=== PATIENT | female | born 1965 | race Caucasian/White ===

== ENCOUNTER 2018-10-20 07:22 | Emergency (ER) | payer BC ==
[~2018-10-20] VITALS: Ht 175.3 cm; Wt 84.1 kg
[~2018-10-20 07:22] MED LIST: ALLEGRA 180MG180 MG PO; ESTRACE 1MG1 MG/TAB; MOTRIN 800800 MG/TAB PO; PERCOCET 325 MG1 TA2 PO; SYNTHROID0.112 MG/T PO
[2018-10-20 07:34] VITALS: TEMP 97.8
[2018-10-20] MEDS ORDERED: PREDNISONE20 MG PO (08:13)
[2018-10-20 09:10] VITALS: BP 120/64; PULSE 82
[2018-10-20] MEDS ORDERED: DIFLUCAN200 MG PO (09:11)
== END 2018-10-20 09:24 | disposition home or self-care (01) ==
LOC: COL.ER 07:22
DX: J11.1 Influenza due to unidentified influenza virus with other respiratory manifestations (principal); L25.9 Unspecified contact dermatitis, unspecified cause; R21 Rash and other nonspecific skin eruption; E03.9 Hypothyroidism, unspecified; Z90.710 Acquired absence of both cervix and uterus; Z98.890 Other specified postprocedural states; Z88.0 Allergy status to penicillin
CPT/HCPCS: J1200; J2930; J7030

== ENCOUNTER → 2019-01-18 | Outpatient (CLI) | payer OTHER, BC ==
[~2019-01-18] MED LIST changes: +DIFLUCAN200 MG PO; +PREDNISONE20 MG PO
== END ==
LOC: COL.RAD 14:10
DX: M47.812 Spondylosis without myelopathy or radiculopathy, cervical region (principal); M48.02 Spinal stenosis, cervical region; V89.2XXD Person injured in unspecified motor-vehicle accident, traffic, subsequent encounter

== ENCOUNTER 2020-04-06 11:32 | Emergency (ER) | payer BC ==
[~2020-04-06] VITALS: Ht 172.7 cm; Wt 96.8 kg
[2020-04-06 12:00] VITALS: TEMP 97.9
[2020-04-06 14:10] VITALS: BP 120/76; PULSE 80
== END 2020-04-06 14:10 | disposition home or self-care (01) ==
LOC: COL.ER 11:32
DX: G43.909 Migraine, unspecified, not intractable, without status migrainosus (principal); G89.29 Other chronic pain; Z79.899 Other long term (current) drug therapy
CPT/HCPCS: J1100; J1200; J1885; J2765; J7030

== ENCOUNTER → 2020-05-05 | Outpatient (CLI) | payer BC | LOC: MC.RAD 13:42 | DX: Z12.31 Encounter for screening mammogram for malignant neoplasm of breast (principal) ==

== ENCOUNTER 2021-08-06 15:40 | Inpatient (IN) | payer BC ==
[~2021-08-06] VITALS: Ht 175.3 cm; Wt 94.0 kg
[2021-08-06 16:45] LABS: BASO % 0.2 % (0.0-2.0); GRAN # 3.1 K/mm3 (1.4-6.5); GRAN % 73.6 % (42.2-75.2); HEMATOCRIT 46.2 % (37.0-47.0); HEMOGLOBIN 15.6 g/dl (12.5-16.0); LYMPH # 0.7 K/mm3 (1.2-3.4); LYMPH % 17.1 % (20.0-51.0); MEAN CELL VOLUME 88 fl (80.0-100.0); MEAN CORPUSCULAR HEMOGLOBIN 30 pg (27.0-31.0); MEAN CORPUSCULAR HGB CONC 34 g/dl (33.0-37.0); MEAN PLATELET VOLUME 9.8 fl (7.4-10.4); MONO # 0.4 K/mm3 (0.1-0.6); MONO % 8.9 % (1.7-9.3); PLATELET COUNT 230 K/mm3 (130-400); RED BLOOD COUNT 5.24 M/mm3 (4.10-5.30); REDCELL DISTRIBUTION WIDTH-CV 12.2 % (11.5-14.5)
[2021-08-06 17:01] LABS: ALBUMIN 3.1 gm/dL (3.5-5.0); BILIRUBIN,TOTAL 0.6 mg/dL (0.2-1.2); CALCIUM 9.5 mg/dL (8.4-10.2); CREATININE, serum 0.73 mg/dL (0.57-1.11); POTASSIUM 4.1 mmol/L (3.5-4.5); TOTAL PROTEIN 7.4 gm/dL (6.2-8.1)
--- NOTE | 2021-08-06 22:24 | NUR ---
Patient came to the unit alert and oriented x 4, O2 levels upper 80s lower 90s. Complains of headache. Right now at room air. PT independent, able to transfer herself.
[2021-08-06] MEDS ORDERED: OTEZLA PO (22:38)
--- NOTE | 2021-08-06 22:51 | NUR ---
Patient reports she was diagnosed with COVID 19 08/02/21
[2021-08-07] VITALS (8 sets, daily range): BP systolic 109–129; BP diastolic 46–70; PULSE 64–99; TEMP 97.6–98.8
--- NOTE | 2021-08-07 07:01 | NUR ---
Patient has been stable along the night. No fever. Continues at RA. Shift report given to day RN.
[2021-08-07 07:12] LABS: COLLECTION METHOD CLEAN CATCH
[2021-08-07 07:16] LABS: HEMATOCRIT 43.6 % (37.0-47.0); MEAN CELL VOLUME 88 fl (80.0-100.0); MEAN CORPUSCULAR HEMOGLOBIN 30 pg (27.0-31.0); MEAN CORPUSCULAR HGB CONC 34 g/dl (33.0-37.0); MEAN PLATELET VOLUME 10.3 fl (7.4-10.4); PLATELET COUNT 232 K/mm3 (130-400); RED BLOOD COUNT 4.97 M/mm3 (4.10-5.30); REDCELL DISTRIBUTION WIDTH-CV 12.1 % (11.5-14.5)
[2021-08-07 07:27] LABS: MUCOUS Present /lpf; PH 5 (5-8); SQUAMOUS EPITHELIAL 0-2 /hpf; URINE APPEARANCE Clear; URINE BACTERIA None Seen /hpf; URINE BILIRUBIN Negative (NEGATIVE); URINE BLOOD Negative (NEGATIVE); URINE COLOR Yellow; URINE GLUCOSE Negative (NEGATIVE); URINE KETONE Negative (NEGATIVE); URINE LEUKOCYTE ESTERASE Negative (NEGATIVE); URINE NITRATE Negative (NEGATIVE); URINE PROTEIN(semi-quant) Negative (NEGATIVE); URINE RBC 0-2 /hpf; URINE UROBILINOGEN Negative (NEGATIVE)
[2021-08-07 07:42] LABS: CALCIUM 9.3 mg/dL (8.4-10.2); CREATININE, serum 0.69 mg/dL (0.57-1.11); POTASSIUM 3.9 mmol/L (3.5-4.5)
[2021-08-07 08:18] LABS: BAND 9 % (0-10); BASOPHIL 1 % (0-2); LYMPHOCYTE 27 % (20.0-51.0); NEUTROPHILS 50 % (42.0-75.2); PLATELET ESTIMATE NORMAL (NORMAL)
--- NOTE | 2021-08-07 08:59 | NUR ---
PT HAD EXTREME COUGHING EPISODE AFTER EACH PUFF OF ALBUTEROL. RN IN ROOM
--- NOTE | 2021-08-07 09:21 | NUR ---
Scheduled medications given. Shift assessment preformed. Patient experiencing SOA and cough upon exertions. Cough also present at rest, small amount of sputum as a result. PRN cough medicine given. Patient currently on RA. Patient denies any pain, discomfort, N/V/V, or further needs at this time. Call light in reach. VSS. Patient A&O. Currently refusing Remdesivir.
--- NOTE | 2021-08-07 09:21 | NUR ---
The patient is COVID positive. SW contacted the patient to discuss discharge plan. The patient lives in [place] with her , Breanna (ph#[phone]), and children. She reports independence with ADLs and does not have any DME. The patient's PCP is Dr. Gabriel Roldan and she receives her medications from [facility]. She reports no difficulties obtaining her meds. The patient does not have a DPOA-HC, but she was interested in obtaining a form when she discharges. ALEJANDRA placed a form on the patient's chart. The patient plans to return home with her family upon discharge. No additional needs at this time. *Discharge plan: home with family*
--- NOTE | 2021-08-07 17:47 | NUR ---
Patient has had a rough day. Patient given information regarding the use of remdesivir. Dr. Delarosa discussed medication with patient. All questions answered. Patient agreed to take medication. Not long after medication was given, patient started to C/O a severe headache. Did not rate it on pain scale, stated, "It just hurts." PRN motrin and icepack given. Patient stated "This has helped a little." Pain began to increase shortly after. [place] contacted. Orders for medication placed. Patient is currenlty not requiring any O2. Getting robitussin Q4. Patient denies any further needs at this time. VSS. Patient A&O. Call light in reach.
--- NOTE | 2021-08-07 20:12 | NUR ---
Patient sat 84% on room air, O2@ 3L per NC to increase sat to 92%, notified MD carton counter feeder, RT.
[2021-08-08] VITALS (7 sets, daily range): BP systolic 109–133; BP diastolic 39–68; PULSE 77–102; TEMP 98.7–102.8
--- NOTE | 2021-08-08 04:00 | NUR ---
Notified Bette Palma of elevated temp 102.8, PRN tylenol given, no new orders at this time.
--- NOTE | 2021-08-08 08:11 | NUR ---
Shift assessment completed. Scheduled medications given. Patient currently requiring 3L of O2 via nasal cannula. Dyspnea and cough noted upon exertion. Patient C/O headache. Does not rate, states "It just hurts." PRN medication and ice pack given. Patient also C/O body aches. Patient denies any N/V/D. Temp currently 99.4. Patient denies any further needs at this time. Call light in reach. Patient A&O.
--- NOTE | 2021-08-08 18:26 | NUR ---
Patient has had an ok day. Currently requiring 3L of O2 via nasal cannula. Has not c/o headache this afternoon. Patient refused Remdesivir stating that it made her feel terrible yesterday and she does not want to experience it again. Current temp 99.8. Patient offered shower and wishes to take on at a later time. Patient denies any pain, discomfort, or further needs at this time. Call light in reach. VSS. Patient A&O.
[2021-08-09 04:34] VITALS: BP 124/53; PULSE 81; TEMP 99.4
[2021-08-09 08:43] VITALS: BP 117/50; PULSE 80; TEMP 98.1
--- NOTE | 2021-08-09 08:45 | NUR ---
ENTERED PT ROOM, PT HAVING LABORED BREATHING, REPORTS JUST GETTING BACK FROM RESTROOM. VITALS TAKEN, O2 82% ON 6L, TITRATED TO 8L FOR ABOUT 5MIN AND PT STILL SATTING 82%. THEN TITRATED TO 10L, O2 INC TO 83%. PT NOT INCREASING O2 BOSE, INC COUGHING, TITRATED TO 15L, RT NOTIFIED STILL MAINTAINING 82% ON 15L
--- NOTE | 2021-08-09 09:21 | NUR ---
PT SPO2 88% ON 15 LPM HFNC. PLACED ON AIRVO 50L FIO2 75% SPO2 93 % . RN NOTIFIED
--- NOTE | 2021-08-09 10:01 | NUR ---
DR. MORENO NOTIFIED OF PT INCREASED OXYGEN DEMANDS, NO NEW ORDERS
--- NOTE | 2021-08-09 10:32 | NUR ---
PT 98% ON AIRVO, RESTING COMFORTABLY
[2021-08-09 13:15] VITALS: BP 105/56; PULSE 81; TEMP 98
[2021-08-09 15:37] VITALS: BP 118/50; PULSE 80; TEMP 98.3
--- NOTE | 2021-08-09 16:31 | NUR ---
RFA IV INFILTRATED, LFA 20G STARTED, ANX AND REMDESIVIR HUNG, NO OTHER NEEDS
--- NOTE | 2021-08-09 17:30 | NUR ---
PT PLEASANT, REQUESTED APPLE SAUCE, REMDESIVIR DETTACHED, APPLE SAUCE BROUGHT IN, COUGH SYRUP GIVEN PER PT REQUEST, PT AOX4, INDEPENDENT IN ROOM, ON AIRVO, REPORTS DIARRHEA, NO N/V. NO OTHER NEEDS AT THIS TIME
[2021-08-09 19:56] VITALS: BP 128/52; PULSE 88; TEMP 98
[2021-08-10 00:01] VITALS: BP 130/57; PULSE 94; TEMP 98
[2021-08-10 04:06] VITALS: BP 130/57; PULSE 96; TEMP 97.7
--- NOTE | 2021-08-10 04:57 | NUR ---
Rested quielty throughout release of information clerk, VS stable, tolerating covid medication regimen w/o issue, ambulates w/o difficulty.
[2021-08-10 09:06] VITALS: BP 109/49; PULSE 77; TEMP 97.4
--- NOTE | 2021-08-10 10:00 | NUR ---
Patient laying in bed upon entering the room. Requested a hot wash cloth to wash her face, patient took her airvo off. Patient has been educated that airvo needs to stay on at all times.
--- NOTE | 2021-08-10 10:39 | NUR ---
The patient is now requiring 60 liters of oxygen via high flow cannula. SW to continue to monitor.
[2021-08-10 12:13] VITALS: BP 116/42; PULSE 76; TEMP 98.3
[2021-08-10 17:04] VITALS: BP 111/51; PULSE 87; TEMP 98.1
--- NOTE | 2021-08-10 17:48 | NUR ---
Patient has done okay today since being on the max amount of Airvo. Promethazine was administered prior to the administration of remdesivir and patient seems to be tolerating all medications well.
[2021-08-10 20:40] VITALS: BP 109/56; PULSE 74; TEMP 98.1
[2021-08-10 21:37] LABS: ARTERIAL BLD GAS O2 SATURATION 96.6 % (92-100); ARTERIAL BLOOD GAS BASE EXCESS 1.7 (-2-2); ARTERIAL BLOOD GAS PCO2 35.4 mmHg (35-45); ARTERIAL BLOOD GAS PO2 82.3 mmHg (80-100); ARTERIAL BLOOD GAS pH 7.47 (7.35-7.45)
[2021-08-11 00:10] VITALS: BP 128/57; PULSE 80; TEMP 97.9
[2021-08-11 03:32] VITALS: BP 107/50; PULSE 66; TEMP 98.4
[2021-08-11 07:19] LABS: HEMATOCRIT 42.2 % (37.0-47.0); HEMOGLOBIN 14.5 g/dl (12.5-16.0); MEAN CELL VOLUME 88 fl (80.0-100.0); MEAN CORPUSCULAR HEMOGLOBIN 30 pg (27.0-31.0); MEAN CORPUSCULAR HGB CONC 34 g/dl (33.0-37.0); MEAN PLATELET VOLUME 9.9 fl (7.4-10.4); PLATELET COUNT 357 K/mm3 (130-400); RED BLOOD COUNT 4.82 M/mm3 (4.10-5.30)
[2021-08-11 07:43] LABS: ALBUMIN 2.5 gm/dL (3.5-5.0); BILIRUBIN,TOTAL 0.6 mg/dL (0.2-1.2); C-REACTIVE PROTEIN 15.9 mg/dL (0.00-0.50); CALCIUM 9.5 mg/dL (8.4-10.2); CREATININE, serum 0.64 mg/dL (0.57-1.11); POTASSIUM 4.4 mmol/L (3.5-4.5); TOTAL PROTEIN 6.8 gm/dL (6.2-8.1)
[2021-08-11 08:42] VITALS: BP 115/57; BP 132/93; PULSE 68; PULSE 76; TEMP 98.3; TEMP 98.4
[2021-08-11 09:00] LABS: BAND 1 % (0-10); EOSINOPHIL 1 % (0-4); LYMPHOCYTE 23 % (20.0-51.0); NEUTROPHILS 65 % (42.0-75.2); PLATELET ESTIMATE NORMAL (NORMAL)
--- NOTE | 2021-08-11 11:59 | NUR ---
PT WAS ALERT AND ORIENTED; STATED SHE WAS FEELING BETTER THAN YESTERDAY. SHE DID NOT HAVE ANY CONCERNS OR PAIN AT THIS TIME. OXYGEN WAS SET TO 55L 90%. DURING ASSESSMENT, PATIENT HAD A COUGHING FIT AND PRODUCED GREEN SPUTUM.
[2021-08-11 12:00] VITALS: BP 114/77; PULSE 93; TEMP 97.8
[2021-08-11 16:00] VITALS: BP 115/45; PULSE 87; TEMP 98.3
--- NOTE | 2021-08-11 19:23 | NUR ---
PT HAD UNEVETFUL DAY. WAS IN VERY GOOD SPIRITS. PT DENIES ANY PAIN. NO CONCERNS FROM HER OTHERWISE. PT IS ON AIRVO AT 55L 90%, ATTEMPTS MADE TO WEAN HER DOWN, HOWEVER, O2 SATURATIONS REMAINED STEADY AT 90-91%. PT ONLY COMPLAINT ABOUT AIRVO IS HOW UNCOMFORTABLE IT IS IN HER NOSE. PT COMPLAINED OF IV PAIN AFTER PHENERGAN ADMINISTRATION, FLUSHED IV SITE WITH NS, AND WAITED 15 MINUTES BEFORE HANGING REMDESEVIR. NO OTHER CONCERNS; REPORT GIVEN TO DAMEON EVANGELISTA.
[2021-08-11 20:42] VITALS: BP 120/63; PULSE 95; TEMP 97.9
[2021-08-12 00:23] VITALS: BP 123/63; PULSE 75; TEMP 98.4
[2021-08-12 03:38] LABS: ARTERIAL BLOOD GAS BASE EXCESS 1.2 (-2-2); ARTERIAL BLOOD GAS HCO3 24.7 meq/L (22-26); ARTERIAL BLOOD GAS pH 7.46 (7.35-7.45)
[2021-08-12 03:39] LABS: ARTERIAL BLD GAS TCO2 CT 25.8
--- NOTE | 2021-08-12 04:40 | NUR ---
Patient resting comfortably, laying on side, Airvo in use- tolerating well, VS stable, denies pain, will continue to monitor.
[2021-08-12 05:08] VITALS: BP 126/62; PULSE 68; TEMP 97.7
[2021-08-12 06:53] LABS: HEMATOCRIT 42.2 % (37.0-47.0); HEMOGLOBIN 14.3 g/dl (12.5-16.0); MEAN CELL VOLUME 89 fl (80.0-100.0); MEAN CORPUSCULAR HEMOGLOBIN 30 pg (27.0-31.0); MEAN CORPUSCULAR HGB CONC 34 g/dl (33.0-37.0); MEAN PLATELET VOLUME 9.7 fl (7.4-10.4); RED BLOOD COUNT 4.73 M/mm3 (4.10-5.30)
[2021-08-12 06:58] LABS: PLATELET COUNT 471 K/mm3 (130-400)
--- NOTE | 2021-08-12 07:00 | NUR ---
Report received from DAMEON George. Pt in b ed resting with AIRVO in place, will continue to monitor.
[2021-08-12 07:11] LABS: C-REACTIVE PROTEIN 7.72 mg/dL (0.00-0.50); CALCIUM 9.2 mg/dL (8.4-10.2); CREATININE, serum 0.66 mg/dL (0.57-1.11); POTASSIUM 4.8 mmol/L (3.5-4.5)
[2021-08-12 07:48] LABS: ANISOCYTOSIS 1+; BAND 1 % (0-10); LYMPHOCYTE 22 % (20.0-51.0); NEUTROPHILS 70 % (42.0-75.2); PLATELET ESTIMATE INCREASED (NORMAL)
[2021-08-12 07:51] VITALS: BP 114/59; PULSE 86; TEMP 98.1
--- NOTE | 2021-08-12 09:52 | NUR ---
Assessment charted. Pt in bed resting, states she just got done getting up and ambulating around room, 02 at 87% and did take some time to get back up to 90%. Pt alert and oriented, agreeable to POC. Deneis pain or other needs, will conitnue to monitor.
[2021-08-12 12:52] VITALS: BP 119/58; PULSE 75; TEMP 97.8
[2021-08-12 16:42] VITALS: BP 133/58; PULSE 78; TEMP 97.9
--- NOTE | 2021-08-12 18:35 | NUR ---
Pt has done well today, up in room with therapy. This evening vitals revealed 02 at 95% on same AIRVO settings. Denies needs, will give report to nightshift nurse who will resume care.
--- NOTE | 2021-08-12 20:00 | NUR ---
Patient is resting in bed watching TV, alert and oriented x 4, VSS, airvo at 50L at 72%. Patient reports feelin ok and have SOB when she walks to restroom and back. Assessment completed, no further needs at this time. Call ligth within reach.
[2021-08-12 20:28] VITALS: BP 117/47; PULSE 80; TEMP 98.4
[2021-08-13 00:59] VITALS: BP 127/61; PULSE 59; TEMP 98
[2021-08-13 04:29] VITALS: BP 120/64; PULSE 63; TEMP 98
--- NOTE | 2021-08-13 06:51 | NUR ---
Patient had a calm night. RT change from airvo to high flow NC 8 L O2. Shift report will be given to day RN.
[2021-08-13 07:00] LABS: C-REACTIVE PROTEIN 3.84 mg/dL (0.00-0.50); CALCIUM 9.3 mg/dL (8.4-10.2); CREATININE, serum 0.69 mg/dL (0.57-1.11); POTASSIUM 4.3 mmol/L (3.5-4.5)
[2021-08-13 08:50] VITALS: BP 109/64; PULSE 89; TEMP 98.1
--- NOTE | 2021-08-13 11:01 | NUR ---
SW contacted the patient to follow up. The patient states that she is doing much better. She states that she is not longer on the airvo. She is down to 8 liters of oxygen. The patient plans on returning home with her family upon discharge. SW to continue to monitor. *Discharge plan: home with family*
[2021-08-13 12:25] VITALS: BP 102/47; PULSE 83; TEMP 98.4
--- NOTE | 2021-08-13 12:43 | NUR ---
ASSESSMENT COMPLETE. PT COOPERATIVE WITH CARES. PT DENIES PAIN, PALPITATIONS OR DIZZINESS. PT SEEMED HAPPY, WAS SINGING CONFUCIANISM MUSIC. PT DENIES ANY NEEDS AT THIS TIME. CALL LIGHT WITHIN REACH.
[2021-08-13 16:25] VITALS: BP 114/49; PULSE 76; TEMP 98.5
--- NOTE | 2021-08-13 18:19 | NUR ---
PT EATING DINNER WHILE WATCHING TV. PT SEEMED IN GOOD SPIRITS TODAY. PT REMAINS ON 8L HIGH FLOW VIA NC WITH O2 STATS REMAINING IN THE MID TO LOW 90% RANGE. PT HAD AN UNEVENFUL DAY. PT DENIES PAIN AND MAINTAINS ALL HER NEEDS ARE MEET. CALL LIGHT IS WITHIN REACH.
--- NOTE | 2021-08-13 20:00 | NUR ---
Patient is resting in bed, alert and oriented x 4, VSS, 8L O2 NC, good mood. Denies pain, nausea or vomiting. Complains about discomfort with the IV, burning while flushing. Will be discontinue and start a new one. Assessment completed. No further needs at this time. Call light within reach.
[2021-08-13 20:47] VITALS: BP 109/86; PULSE 93; TEMP 98
--- NOTE | 2021-08-13 23:00 | NUR ---
IV in right forearm discontiued. New IV in left FA.
[2021-08-14] VITALS (7 sets, daily range): BP systolic 109–128; BP diastolic 54–68; PULSE 64–94; TEMP 97.6–98.3
--- NOTE | 2021-08-14 06:28 | NUR ---
Patient has had a calm night. She is at 6L NC. All needs met. Shift report will be given to day RN.
[2021-08-14 07:08] LABS: HEMATOCRIT 42.9 % (37.0-47.0); HEMOGLOBIN 14.5 g/dl (12.5-16.0); MEAN CELL VOLUME 89 fl (80.0-100.0); MEAN CORPUSCULAR HEMOGLOBIN 30 pg (27.0-31.0); MEAN CORPUSCULAR HGB CONC 34 g/dl (33.0-37.0); MEAN PLATELET VOLUME 9.5 fl (7.4-10.4); PLATELET COUNT 498 K/mm3 (130-400); RED BLOOD COUNT 4.85 M/mm3 (4.10-5.30)
[2021-08-14 07:27] LABS: C-REACTIVE PROTEIN 3.14 mg/dL (0.00-0.50); CREATININE, serum 0.66 mg/dL (0.57-1.11); POTASSIUM 4.4 mmol/L (3.5-4.5)
--- NOTE | 2021-08-14 09:00 | NUR ---
PT LAYING IN BED LISTENING TO ORTHODOX MUSIC. PT HAD A VERY POSITIVE OUTLOOK. PT STATED SHE WAS FEELING GREAT. MORNING MEDS GIVEN. ASSESSMENT COMPLETED. PT DENIES PAIN, N/V, PALPITATIONS AND DIZZINESS. PT COOPERATIVE WITH CARES. PT NOW ON 5L OF O2. DR. GRAHAM STATED THAT PT WOULD NEED TO BE DOWN TO 3L OF O2 BEFORE SHE COULD BE CONSIDERED FOR DISCHARGE. PT STATED SHE HAS NO NEEDS AT THIS TIME. CALL LIGHT WITHIN REACH.
--- NOTE | 2021-08-14 18:26 | NUR ---
PT HAD AN UNEVENFUL DAY TODAY. PT SPOKE WITH FAMILY AND FRIENDS VIA PHONE TODAY. PT WANTS TO START TAKING HER [place] IN THE EVENING NOW. PT DENIES PAIN OR ANY OTHER CONCERNS OR NEEDS AT THIS TIME. CALL LIGHT WITHIN REACH.
--- NOTE | 2021-08-14 22:05 | NUR ---
Patient assessed around 2049. Alert and oriented, and able to make needs known. Denies having pain and discomfort. Peripheral INT to left forearm. On oyxgen at 4 L/min via NC. LS CTA. Respirations even and unlabored. Voices no questions, needs, or concerns at this time. Resting in bed with call light within reach.
[2021-08-15] VITALS (7 sets, daily range): BP systolic 114–140; BP diastolic 48–93; PULSE 66–86; TEMP 97.5–98.4
--- NOTE | 2021-08-15 05:50 | NUR ---
Continues on oxygen at 4 L/min via NC. Denies SOB and dyspnea. Continues to report she is feeling much better. Denies pain and discomfort. In bed with call light within reach.
--- NOTE | 2021-08-15 07:14 | NUR ---
RECEIVED REPORT FROM DAMEON ROB. PT AWAKE/ALERT SITTING UP IN BED. DENIES PAIN. NO NEEDS AT THIS TIME. CALL KING IN REACH
[2021-08-15 09:21] LABS: HEMATOCRIT 44.8 % (37.0-47.0); HEMOGLOBIN 14.7 g/dl (12.5-16.0); MEAN CELL VOLUME 91 fl (80.0-100.0); MEAN CORPUSCULAR HEMOGLOBIN 30 pg (27.0-31.0); MEAN CORPUSCULAR HGB CONC 33 g/dl (33.0-37.0); MEAN PLATELET VOLUME 9.9 fl (7.4-10.4); PLATELET COUNT 498 K/mm3 (130-400); RED BLOOD COUNT 4.92 M/mm3 (4.10-5.30)
[2021-08-15 09:46] LABS: CALCIUM 9.5 mg/dL (8.4-10.2); CREATININE, serum 0.63 mg/dL (0.57-1.11); POTASSIUM 4.4 mmol/L (3.5-4.5)
[2021-08-15 11:57] LABS: BAND 2 % (0-10); EOSINOPHIL 1 % (0-4); LYMPHOCYTE 22 % (20.0-51.0); NEUTROPHILS 70 % (42.0-75.2)
[2021-08-15 11:58] LABS: PLATELET ESTIMATE INCREASED (NORMAL)
--- NOTE | 2021-08-15 17:36 | NUR ---
PT HAD UNEVENTFUL DAY. DENIES PAIN. NO NEEDS AT THIS TIME. CALL KING IN REACH.
--- NOTE | 2021-08-15 19:16 | NUR ---
Patient assessed at this time. Alert and oriented x 4, and able to make needs known. Peripheral INT to left forearm. Reports some SOB with exertion, but overall feeling much better. Denies SOB at rest. LS CTA. Respirations even and unlabored at rest. On oxygen at 2 L/min via NC. Using incentive spirometer. Denies having pain and discomfort. Denies having any questions, needs, or concerns at this time. Resting in bed with call light within reach.
[2021-08-16 05:25] VITALS: BP 105/44; PULSE 72; TEMP 97.9
--- NOTE | 2021-08-16 06:05 | NUR ---
Patient has been on oxygen at 2 L/min via NC this shift. Denies SOB and dyspnea. In bed with call light within reach.
--- NOTE | 2021-08-16 06:45 | NUR ---
REPORT RECEIVED FROM DAMEON ROB. PT ASLEEP IN BED. BREATHING REG/UNLABORED. CALL KING IN REACH
[2021-08-16 07:11] VITALS: BP 122/70; PULSE 76; TEMP 97.9
[2021-08-16 09:07] LABS: HEMATOCRIT 45.9 % (37.0-47.0); HEMOGLOBIN 15.3 g/dl (12.5-16.0); MEAN CELL VOLUME 89 fl (80.0-100.0); MEAN CORPUSCULAR HEMOGLOBIN 30 pg (27.0-31.0); MEAN CORPUSCULAR HGB CONC 33 g/dl (33.0-37.0); MEAN PLATELET VOLUME 9.5 fl (7.4-10.4); PLATELET COUNT 580 K/mm3 (130-400); RED BLOOD COUNT 5.16 M/mm3 (4.10-5.30)
[2021-08-16 09:24] LABS: CALCIUM 9.4 mg/dL (8.4-10.2); CREATININE, serum 0.78 mg/dL (0.57-1.11); POTASSIUM 4.4 mmol/L (3.5-4.5)
[2021-08-16 10:09] LABS: BAND 5 % (0-10); EOSINOPHIL 1 % (0-4); LYMPHOCYTE 36 % (20.0-51.0); METAMYELOCYTE 1 % (0-0); NEUTROPHILS 53 % (42.0-75.2)
[2021-08-16 10:10] LABS: PLATELET ESTIMATE INCREASED (NORMAL)
[2021-08-16] MEDS ORDERED: DECADRON6 MG PO (12:13)
[2021-08-16 12:39] VITALS: BP 130/68; PULSE 79; TEMP 98
--- NOTE | 2021-08-16 13:59 | NUR ---
DISCHARGE INSTRUCTIONS REVIEWED VAISHALI PT. QUESTIONS INVITED AND ANSWERED. IV REMOVED. PT DRESSED AND READY TO GO.
--- NOTE | 2021-08-16 14:21 | NUR ---
ALEJANDRA informed by patient's nurse that patient would be discharging and would need O2. Patient's choice lucia [facility] faxed to agency, ALEJANDRA spoke with hobbies and crafts sales representative. Coat Operator from agency stated he would call family member to assist with educations on O2 needs for patient.
== END 2021-08-16 15:33 | disposition home or self-care (01) | DRG 177 ==
LOC: COL.ER 15:40 → MEDICAL 19:16
PROVIDERS: Internal Medicine; Internal Medicine Sleep Medicine; Physician Assistant; Student in an Organized Health Care Education/Training Program; ADMIT Family Medicine
PROC: XW033E5 Introduction of Remdesivir Anti-infective into Peripheral Vein, Percutaneous Approach, New Technology Group 5 (ICD-10-PCS; principal; 2021-08-14)
PROC: 5A0935A Assistance with Respiratory Ventilation, Less than 24 Consecutive Hours, High Flow/Velocity Cannula (ICD-10-PCS; 2021-08-14)
DX: U07.1 COVID-19 (principal); J96.01 Acute respiratory failure with hypoxia; R65.10 Systemic inflammatory response syndrome (SIRS) of non-infectious origin without acute organ dysfunction; E03.9 Hypothyroidism, unspecified; Z90.710 Acquired absence of both cervix and uterus; L40.9 Psoriasis, unspecified; J30.2 Other seasonal allergic rhinitis; Z79.890 Hormone replacement therapy; Z73.0 Burn-out
CPT/HCPCS: 99223-AI; 99231-AI; 99232-AI; 99239; A9284; J0696; J1100; J1650; J2405; J2550; J7030; J7050; J8540

== ENCOUNTER → 2021-09-07 | Outpatient (CLI) | payer BC ==
[~2021-09-07] MED LIST changes: +DECADRON6 MG PO; +OTEZLA PO
== END ==
LOC: COL.RAD 12:56
DX: U07.1 COVID-19 (principal); R91.1 Solitary pulmonary nodule; R59.0 Localized enlarged lymph nodes; J12.82 Pneumonia due to coronavirus disease 2019
CPT/HCPCS: Q9967

== ENCOUNTER → 2021-10-08 | Outpatient (CLI) | payer BC | LOC: COL.RAD 07:45 | DX: M25.861 Other specified joint disorders, right knee (principal) | CPT/HCPCS: J3301 ==